=== PATIENT | female | born 1935 | race Caucasian/White ===

== ENCOUNTER → 2017-03-12 | Outpatient (CLI) | payer MEDICARE, OTHER ==
--- NOTE | 2017-03-14 11:47 | PE ---
Nuclear medicine PET/CT HISTORY: Colon cancer, C18.7 Patient received 9.8 mCi F-18 FDG intravenously. Delayed scanning performed through the skull base to the mid thighs. Localization and attenuation correction CT scan was performed. Correlation to prior CT abdomen pelvis 05/29/2016 Neck and chest: Emphysematous changes are present within the lungs. No mediastinal, axillary, or josy r adenopathy. Coronary artery calcifications are extensive. Minimal pericardial effusion. No pleural effusion. No suspicious hypermetabolic uptake. Abdomen pelvis: There is no evident liver mass. Patient is post cholecystectomy. No retroperitoneal a denopathy. There is an ostomy in the left lower quadrant, status post partial colectomy. Some physiol ogic uptake suspected at the ostomy site. Right-sided colonic uptake is indeterminate but may be phys iologic. No evident pelvic adenopathy or hypermetabolic uptake. No ascites. Diverticular changes asso ciated with the sigmoid colon. Osseous structures: Extensive facet arthropathy at the lower thoracic spine. Degenerative disc change s are present. IMPRESSION: Abdominal uptake as described may be physiologic. Postop changes.
== END | disposition home or self-care (01) ==
LOC: RADPETMAIN 13:12
PROVIDERS: ATTEND Surgery
DX: C18.7 Malignant neoplasm of sigmoid colon (principal); Z98.890 Other specified postprocedural states
CPT/HCPCS: 78815; A9552